=== PATIENT | female | born 1945 ===

== ENCOUNTER 2018-10-29 21:45 | Observation (INO) | payer OTHER ==
[~2018-10-29] VITALS: Ht 152.4 cm; Wt 68.0 kg
[2018-10-29] MEDS ORDERED: TELM80 PO (22:06)
[2018-10-29] MEDS ORDERED: SYNTHROID112 MCG PO (22:06)
[2018-10-29 22:50] LABS: BASOPHILS ABSOLUTE AUTO 0.04 K/mm3 (0.00-0.23); BASOPHILS PERCENT AUTO 1 % (0-2); EOSINOPHILS ABSOLUTE AUTO 0.08 K/mm3 (0.00-0.68); EOSINOPHILS PERCENT AUTO 1 % (0-6); Hematocrit 42.9 % (33.0-51.0); Hemoglobin 14.1 g/dL (11.5-16.0); IMMATURE GRAN ABSOLUTE AUTO 0.02 K/mm3 (0.00-0.10); IMMATURE GRAN PERCENT AUTO 0 % (0-1); LYMPHOCYTES ABSOLUTE AUTO 1.24 K/mm3 (0.84-5.20); LYMPHOCYTES PERCENT AUTO 19 % (21-46); MONOCYTES ABSOLUTE AUTO 0.37 K/mm3 (0.16-1.47); MONOCYTES PERCENT AUTO 6 % (4-13); Mean Corpuscular HGB Conc 32.9 g/dL (31.5-36.5); Mean Corpuscular Volume 103 fL (80-100); Mean Platelet Volume 11.6 fL (9.1-12.4); NEUTROPHILS ABSOLUTE AUTO 4.96 K/mm3 (1.96-9.15); NEUTROPHILS PERCENT AUTO 74 % (41-73); Platelet Count 159 K/mm3 (150-400); RDW Coefficient Variation 14.5 % (11.7-14.2); Red Blood Cell Count 4.15 M/mm3 (3.80-5.20); White Blood Cell Count 6.71 K/mm3 (4.00-11.30)
[2018-10-29 23:11] LABS: Alanine Aminotransfer (ALT/SGP 40 U/L (12-78); Alk Phos 87 U/L (50-136); Anion Gap 7 mmol/L (6-16); Aspartate Aminotrans (AST/SGOT 44 U/L (12-37); Bilirubin, Total 0.4 mg/dL (0.1-1.0); Blood Urea Nitrogen 15 mg/dL (8-24); Bun/Creatinine Ratio 15.2 (12.0-20.0); CO2, Blood 30 mmol/L (21-32); Calcium, Blood 8.7 mg/dL (8.5-10.1); Chloride, Blood 103 mmol/L (98-108); Creatinine, Blood 0.98 mg/dL (0.40-1.00); Globulin, Blood 4.2 g/dL (2.2-4.0); Glomerular Filtration Rate 58 (60-); Glucose, Blood 110 mg/dL (70-99); Potassium, Blood 3.3 mmol/L (3.5-5.5); Sodium, Blood 140 mmol/L (136-145); Total Protein, Blood 8.2 g/dL (6.4-8.2); Troponin I <0.015 ng/mL (0.000-0.040)
[2018-10-30 06:07] LABS: Magnesium, Blood 2.4 mg/dL (1.6-2.4)
[2018-10-30 06:14] LABS: Cholesterol 303 mg/dL (50-200); HDL Cholesterol 75 mg/dL (>39); LDL/HDL RATIO 2.7; Low Density Lipoprotein Chol 204 mg/dL (0-110); Triglycerides 119 mg/dL (30-160); Very Low Density Lipoprot Chol 23 mg/dL (6-32)
[2018-10-30 07:02] LABS: International Normalized Ratio 1.02; Prothrombin Time Results 10.8 Sec (9.7-11.5)
--- NOTE | 2018-10-30 09:05 | NUR ---
LEFT NOTE ON VOICE MAIL; CAN PATIENT EAT, SOMETHING FOR SORE THROAT, AND IS PATIENT GOING TO HAVE STRESS TEST. PER CARDIOLOGY OFFERED ANGIO AND REFUSED AT THIS TIME
--- NOTE | 2018-10-30 12:16 | NUR ---
Echocardiogram completed.
[2018-10-30 14:16] LABS: Anion Gap 7 mmol/L (6-16); Blood Urea Nitrogen 10 mg/dL (8-24); CO2, Blood 29 mmol/L (21-32); Calcium, Blood 8.6 mg/dL (8.5-10.1); Chloride, Blood 106 mmol/L (98-108); Creatinine, Blood 0.91 mg/dL (0.40-1.00); Glomerular Filtration Rate >60 (60-); Glucose, Blood 95 mg/dL (70-99); Sodium, Blood 142 mmol/L (136-145)
--- NOTE | 2018-10-30 14:37 | NUR ---
ADVISED TROP NEGATIVE. PER CAN STOP HEPARIN.
--- NOTE | 2018-10-30 18:05 | NUR ---
ALERT. ORIENTED. HEPARIN STOPPED PER HAD 3 NEG TROPS. DENIES C.P. THIS SHIFT. C/O SORE THROAT. CEPACOL GIVEN W/MILD RESULTS. NO ORDER FOR CONTINUOUS SAT MONITOR AND PATIENT DOES NOT USE CPAP SO D'C. AWARE NO CAFFEINE AND WILL HAVE DINNER AND BREAKFAST THEN HOLD LUNCH TOMORROW. DAUGHTER TO STAY WITH PATIENT TONIGHT. RECLINER, PILLOWS AND BLANKET PROVIDED. TELE ON AND PER TECH SR W/BBB AND PVC'S. UNLABORED RESPIRATIONS. WCTM
--- NOTE | 2018-10-31 07:28 | NUR ---
SHIFT SUMMARY PATIENT IS ALERT AND ORIENTED. PATIENT DOES NOT SPEAK ZAMBIAN, DAUGHTER AT BEDSIDE TRANSLATING FOR PT. PATIENT REFUSED STOOL SOFTENER LAST NIGHT. PATIENT SLEPT WELL. NO CALLS FROM CHIEF CREATIVE OFFICER STATING ABNORMALITIES. PATIENT IS SBA. NO COMPLAINTS OF PAIN OR ANY NEEDS THROUGHOUT THE NIGHT.
--- NOTE | 2018-10-31 07:47 | NUR ---
NOTIFIED; CLOSE TO BIGEMINY AND 17-20 PVC'S PER MINUTE. THIS AM PULSE WAS 30 FOR SECOND PER PCU TECH THEN 60.
--- NOTE | 2018-10-31 08:02 | NUR ---
CALLED [employer] WHO CONSULTED ON PATIENT YESTERDAY. ADVISED CLOSE TO BIGEMINY, HAD HEART RATE 30 FOR SHORT TIME BY V.S. AND PCU TECH AND 17-20 PVC'S PER MINUTE. ANY CHANGES TO COREG 6.25MG OR COZAAR 100 MG? STS CAN GIVE BOTH THOSE AMOUNTS. NO CHANGES.
--- NOTE | 2018-10-31 09:45 | NUR ---
PATIENT WAS OFFERED A SHOWER AND DECLINED.
--- NOTE | 2018-10-31 13:33 | NUR ---
Pt. is sitting on a chair and the daughter is in the room with, they are taking instuction from the deititian on what type food to eat encouraged pt and edda rosario
--- NOTE | 2018-10-31 15:54 | NUR ---
ALERT. ORIENTED. DENIES C.P/DISCOMFORT. ONLY C/O IS COLD LIKE SYMPTOMS-CONGESTION AND SORE THROAT. IS HAVING SECOND PART OF STRESS TEST. UNLABORED RESPIRATIONS. DAUGHTER VERY ATTENTIVE AND INTERPRETS FOR PATIENT. CAROUSEL OPERATOR LINE AVAILABLE. PATIENT WOULD LIKE TO GO HOME TODAY AND ADVISED WILL LET MD KNOW AFTER TEST COMPLETE. TELE ON. [facility].
[2018-10-31] MEDS ORDERED: ASPI81CH PO (19:18)
[2018-10-31] MEDS ORDERED: LOSA50 PO (19:18)
[2018-10-31] MEDS ORDERED: CEPACOL SORE T1 EACH MM (19:18)
[2018-10-31] MEDS ORDERED: CARV3.125 PO (19:19)
--- NOTE | 2018-10-31 19:51 | NUR ---
DISCHARGE INSTRUCTIONS REVIEWED WITH PT AND DAUGHTER. PRESCRIPTIONS FAXED TO [facility] ON [address]. LEFT AC IV DC'D, CANNULA INTACT, PRESSURE DRESSING APPLIED. PT DECLINED WHEELCHAIR ESCORT STATES SHE CAN WALK OUT. ALL OF PERSONAL BELONGINGS SENT HOME WITH PT AND DAUGHTER AND DISCHARGE INSTRUCTIONS. DISCHARGE PAPER SIGNED, PT AND DAUGHTER UNDERSTANDS THEY WILL BE CALLED WITH DRS APPOINTMENT.
== END 2018-10-31 19:51 | disposition home or self-care (01) ==
LOC: ER 21:45 → EDBD 21:45 → MEDS 21:46 → ER 10-30 01:01 → MEDS 10-30 01:01
PROVIDERS: Internal Medicine; Physician Assistant; ADMIT Hospitalist
DX: I48.0 Paroxysmal atrial fibrillation (principal); I08.3 Combined rheumatic disorders of mitral, aortic and tricuspid valves; E03.9 Hypothyroidism, unspecified; E78.5 Hyperlipidemia, unspecified; E87.6 Hypokalemia; I12.9 Hypertensive chronic kidney disease with stage 1 through stage 4 chronic kidney disease, or unspecified chronic kidney disease; N18.3 Chronic kidney disease, stage 3 (moderate); K21.9 Gastro-esophageal reflux disease without esophagitis; Z87.891 Personal history of nicotine dependence; Z88.8 Allergy status to other drugs, medicaments and biological substances; Z79.899 Other long term (current) drug therapy
CPT/HCPCS: 36415; 71046; 78452; 80048; 80053; 80061; 83735; 84443; 84484; 85025; 85610; 85730; 93005; 93010; 93017; 93306; 96361; 96374; 96375; 99285-25; A9500; G0378; J0706; J1644; J2405; J2785; J7030